=== PATIENT | female | born 1985 | race Caucasian/White ===

== ENCOUNTER 2019-11-11 05:43 | Inpatient (IN) ==
[2019-11-11] MEDS ORDERED: Famotidine 20 MG/2 ML VIAL IVP PRN (06:06)
[2019-11-11] MEDS ORDERED: Metoclopramide 10 MG/2 ML VIAL IVP PRN ×2 (06:06→12:57)
[2019-11-11] MEDS ORDERED: Ringers Solution, Lactated 1,000 ML IVC SCH (06:15)
[2019-11-11 06:24] LABS: Amphetamine Screen,Urine Negative ng/mL (Cutoff=1000); Barbiturate Screen,Urine Negative ng/mL (Cutoff=200); Basophils % 0.2 %; Benzodiazepines Screen,Urine Negative ng/mL (Cutoff=300); Cannabinoid Screen,Urine Negative ng/mL (Cutoff = 50); Cocaine Screen,Urine Negative ng/mL (Cutoff= 300); Eosinophils # 0.1 K/mcL (0.0-0.6); Eosinophils % 0.7 %; Hemoglobin 12.1 g/dL (11.5-15.4); Immature Granulocytes % 0.6 % (0-4); Lymphocytes % 17.3 %; Mean Corpuscular HGB Conc 33.6 g/dL (31.6-35.5); Mean Corpuscular Hemoglobin 29.7 pg (28.0-33.3); Mean Corpuscular Volume 88.5 fL (83.0-100.0); Mean Platelet Volume 10.1 fL (9.4-12.4); Monocytes # 0.7 K/mcL (0.0-1.3); Monocytes % 5.9 %; Neutrophils # 8.5 K/mcL (1.6-8.9); Opiate Screen,Urine Negative ng/mL (Cutoff=300); Phencyclidine Screen,Urine Negative ng/mL (Cutoff=25); Platelet Count 253 K/mcL (140-400); Red Blood Count 4.07 M/mcL (3.82-4.97); Red Cell Distribution Width 15.9 % (11.5-14.5); Segmented Neutrophils % 75.3 %; White Blood Count 11.3 K/mcL (4.3-11.1)
[2019-11-11] MEDS ORDERED: CeFAZolin 2,000 MG/50 ML BAG IVPB ONE (06:31)
[2019-11-11] MEDS ORDERED: *HR* Morphine Sulfate/PF 10 MG/10 ML AMPUL ONE (07:39)
[2019-11-11] MEDS ORDERED: *HR* FentaNYL (PF) 100 MCG/2 ML VIAL ONE (07:39)
[2019-11-11] MEDS ORDERED: *HR* Oxytocin 10 UNIT/ML VIAL IM ONE (07:43)
[2019-11-11] MEDS ORDERED: *HR* Phenylephrine 10 MG/ML VIAL ONE (07:43)
[2019-11-11] MEDS ORDERED: Ringers Solution, Lactated 1,000 ML ONE (08:24)
[2019-11-11] MEDS ORDERED: Ketorolac 30 MG/ML VIAL ONE (08:34)
[2019-11-11] MEDS ORDERED: Acetaminophen IV 1,000 MG/100 ML INFUS..BTL ONE (08:34)
[2019-11-11] MEDS ORDERED: *HR* OxyCODONE Immed Rel 5 MG TABLET PO PRN (08:40)
[2019-11-11] MEDS ORDERED: Oxytocin 20 units/ LR 1000 mL 20 UNIT/1,000 ML BAG IVC ONE (10:31)
[2019-11-11] MEDS ORDERED: Naloxone 0.4 MG/ML INJ IVP PRN (12:57)
[2019-11-11] MEDS ORDERED: Simethicone 80 MG TAB.CHEW PO PRN (12:57)
[2019-11-11] MEDS ORDERED: Oxytocin 20 units/ LR 1000 mL 20 UNIT/1,000 ML BAG IVC SCH (12:57)
[2019-11-11] MEDS ORDERED: Sennosides 8.6 MG TABLET PO PRN (12:57)
[2019-11-11] MEDS ORDERED: Ondansetron 4 MG/2 ML VIAL IVP PRN (12:57)
[2019-11-11] MEDS ORDERED: Acetaminophen 325 MG TABLET PO PRN (12:57)
[2019-11-11] MEDS: Ibuprofen 600 MG TABLET PO PRN (14:44)
[2019-11-11] MEDS: *HR* OxyCODONE/APAP 5/325 TABLET PO PRN (19:32)
[2019-11-11] MEDS ORDERED: Lanolin 7 G OINT...G. TP PRN (20:33)
[2019-11-12] MEDS: Ibuprofen 600 MG TABLET PO PRN ×3 (00:21→14:43)
[2019-11-12] MEDS: *HR* OxyCODONE/APAP 5/325 TABLET PO PRN ×3 (04:39→20:26)
[2019-11-12] MEDS: Prenatal Vit/FA 1 EACH TABLET PO SCH (08:44)
[2019-11-12 12:00] LABS: Basophils % 0.2 %; Eosinophils # 0.1 K/mcL (0.0-0.6); Eosinophils % 0.8 %; Hematocrit 29.8 % (35.3-44.9); Immature Granulocytes % 0.4 % (0-4); Lymphocytes # 1.9 K/mcL (0.6-4.6); Lymphocytes % 16.6 %; Mean Corpuscular HGB Conc 31.9 g/dL (31.6-35.5); Mean Corpuscular Hemoglobin 29.8 pg (28.0-33.3); Mean Corpuscular Volume 93.4 fL (83.0-100.0); Mean Platelet Volume 9.6 fL (9.4-12.4); Monocytes # 0.8 K/mcL (0.0-1.3); Monocytes % 6.8 %; Neutrophils # 8.7 K/mcL (1.6-8.9); Platelet Count 197 K/mcL (140-400); Red Blood Count 3.19 M/mcL (3.82-4.97); Red Cell Distribution Width 16.4 % (11.5-14.5); Segmented Neutrophils % 75.2 %; White Blood Count 11.5 K/mcL (4.3-11.1)
[2019-11-12 12:04] LABS: Hemoglobin 9.5 g/dL (11.5-15.4)
[2019-11-13] MEDS: Ibuprofen 600 MG TABLET PO PRN ×2 (02:24→07:39)
[2019-11-13] MEDS: *HR* OxyCODONE/APAP 5/325 TABLET PO PRN ×2 (06:48→14:25)
[2019-11-13] MEDS: Prenatal Vit/FA 1 EACH TABLET PO SCH (07:39)
[2019-11-13 08:17] VITALS: BP 119/77
== END 2019-11-13 15:35 | disposition home or self-care (01) | DRG 788 ==
LOC: 1NENULAB 05:43 → EDSTATUS 07:45 → 1NENUOBS 11:42
PROVIDERS: ADMIT Obstetrics & Gynecology; ATTEND Obstetrics & Gynecology

== ENCOUNTER 2021-05-31 09:24 | Inpatient (IN) ==
[2021-05-31] MEDS ORDERED: CeFAZolin 2,000 MG/120 ML BAG IVPB ONE ×2 (09:55→11:00)
[2021-05-31] MEDS ORDERED: Metoclopramide 10 MG/2 ML VIAL IVP ONE (09:55)
[2021-05-31] MEDS ORDERED: OXYTOCIN/RINGERS LACTATE 10 UNIT/166.6 ML BAG IVC ONE (09:55)
[2021-05-31] MEDS ORDERED: Famotidine 20 MG/2 ML VIAL IVP ONE (09:55)
[2021-05-31] MEDS ORDERED: Ringers Solution, Lactated 1,000 ML IVC ONE (09:55)
[2021-05-31] MEDS ORDERED: Oxytocin 30 UNIT/503 ML BAG IVC SCH (10:00)
[2021-05-31] MEDS ORDERED: Ringers Solution, Lactated 1,000 ML IVC SCH (10:00)
[2021-05-31] MEDS ORDERED: Ringers Solution, Lactated 1,000 ML ONE ×2 (10:06→11:59)
[2021-05-31 10:25] LABS: Basophils % 0.2 %; Hematocrit 29.7 % (35.3-44.9); Hemoglobin 9.5 g/dL (11.5-15.4); Immature Granulocytes % 2.8 % (0-4); Lymphocytes # 2.2 K/mcL (0.6-4.6); Lymphocytes % 14.9 %; Mean Corpuscular Hemoglobin 26.2 pg (28.0-33.3); Mean Corpuscular Volume 81.8 fL (83.0-100.0); Mean Platelet Volume 9.5 fL (9.4-12.4); Monocytes # 1.1 K/mcL (0.0-1.3); Monocytes % 7.6 %; Neutrophils # 10.8 K/mcL (1.6-8.9); Nucleated Red Blood Cells 0.1 /100 WBC (0); Platelet Count 329 K/mcL (140-400); Red Blood Count 3.63 M/mcL (3.82-4.97); Red Cell Distribution Width 13.4 % (11.5-14.5); Segmented Neutrophils % 74.5 %; White Blood Count 14.6 K/mcL (4.3-11.1)
[2021-05-31] MEDS ORDERED: EPHEDrine 50 MG/ML VIAL ONE (10:27)
[2021-05-31] MEDS ORDERED: Ondansetron 4 MG/2 ML VIAL ONE (10:27)
[2021-05-31] MEDS ORDERED: *HR* FentaNYL (PF) 100 MCG/2 ML VIAL ONE (10:27)
[2021-05-31] MEDS ORDERED: *HR* Morphine Sulfate/PF 10 MG/10 ML AMPUL ONE (10:27)
[2021-05-31] MEDS ORDERED: Ketorolac 30 MG/ML VIAL ONE (10:27)
[2021-05-31] MEDS ORDERED: Acetaminophen IV 1,000 MG/100 ML BAG IVPB ONE (10:28)
[2021-05-31 10:32] LABS: Amphetamine Screen,Urine Negative ng/mL (Cutoff=1000); Barbiturate Screen,Urine Negative ng/mL (Cutoff=200); Benzodiazepines Screen,Urine Negative ng/mL (Cutoff=200); Cannabinoid Screen,Urine Negative ng/mL (Cutoff = 50); Cocaine Screen,Urine Negative ng/mL (Cutoff= 300); Opiate Screen,Urine Negative ng/mL (Cutoff=300); Phencyclidine Screen,Urine Negative ng/mL (Cutoff=25)
[2021-05-31 11:03] LABS: Influenza A PCR Negative (Negative); Influenza B PCR Negative (Negative); Resp. Syncytial Virus PCR Negative (Negative); SARS-CoV-2 by PCR (In House) Negative (Negative)
[2021-05-31] MEDS ORDERED: *HR* HYDROmorphone PF 0.5 MG/0.5 ML SYRINGE IVP PRN (12:56)
[2021-05-31] MEDS ORDERED: Ondansetron 4 MG/2 ML VIAL IVP PRN ×2 (12:56→15:12)
[2021-05-31] MEDS ORDERED: Simethicone 80 MG TAB.CHEW PO PRN (15:12)
[2021-05-31] MEDS ORDERED: Metoclopramide 10 MG/2 ML VIAL IVP PRN (15:12)
[2021-05-31] MEDS: Ibuprofen 600 MG TABLET PO SCH (16:25)
[2021-05-31] MEDS: Acetaminophen 325 MG TABLET PO SCH (16:25)
[2021-05-31] MEDS: *HR* OxyCODONE Immed Rel 5 MG TABLET PO PRN (19:49)
[2021-06-01] MEDS: Acetaminophen 325 MG TABLET PO SCH ×4 (01:53→23:27)
[2021-06-01] MEDS: Ibuprofen 600 MG TABLET PO SCH ×4 (01:53→23:27)
[2021-06-01] MEDS: *HR* OxyCODONE Immed Rel 5 MG TABLET PO PRN ×4 (03:00→19:03)
[2021-06-01 03:11] LABS: Basophils % 0.1 %; Eosinophils % 0.2 %; Hematocrit 25.8 % (35.3-44.9); Immature Granulocytes % 1.3 % (0-4); Lymphocytes # 2.2 K/mcL (0.6-4.6); Lymphocytes % 14.3 %; Mean Corpuscular Hemoglobin 26.3 pg (28.0-33.3); Mean Corpuscular Volume 84.9 fL (83.0-100.0); Mean Platelet Volume 9.5 fL (9.4-12.4); Monocytes # 1.3 K/mcL (0.0-1.3); Monocytes % 8.3 %; Neutrophils # 11.8 K/mcL (1.6-8.9); Nucleated Red Blood Cells 0.1 /100 WBC (0); Platelet Count 254 K/mcL (140-400); Red Blood Count 3.04 M/mcL (3.82-4.97); Red Cell Distribution Width 13.7 % (11.5-14.5); Segmented Neutrophils % 75.8 %; White Blood Count 15.6 K/mcL (4.3-11.1)
[2021-06-01] MEDS: Prenatal Vit/FA 1 EACH TABLET PO SCH (08:23)
[2021-06-01 18:52] VITALS: TEMP 97.6
[2021-06-02] MEDS: *HR* OxyCODONE Immed Rel 5 MG TABLET PO PRN ×4 (02:47→17:20)
[2021-06-02] MEDS: Prenatal Vit/FA 1 EACH TABLET PO SCH (07:50)
[2021-06-02] MEDS: Acetaminophen 325 MG TABLET PO SCH ×3 (09:45→22:21)
[2021-06-02] MEDS: Ibuprofen 600 MG TABLET PO SCH ×3 (09:45→22:21)
[2021-06-03] MEDS: *HR* OxyCODONE Immed Rel 5 MG TABLET PO PRN ×2 (00:54→08:01)
[2021-06-03] MEDS: Ibuprofen 600 MG TABLET PO SCH ×3 (06:20→11:40)
[2021-06-03] MEDS: Acetaminophen 325 MG TABLET PO SCH (06:21)
[2021-06-03 07:07] VITALS: BP 120/78; PULSE 65; O2SAT 98
[2021-06-03] MEDS: Prenatal Vit/FA 1 EACH TABLET PO SCH (08:00)
== END 2021-06-03 11:41 | disposition home or self-care (01) | DRG 787 ==
LOC: 1NENULAB 09:24 → 1NENUOBS 15:12
PROVIDERS: ADMIT Obstetrics & Gynecology; ATTEND Obstetrics & Gynecology